=== PATIENT | female | born 1950 | race Caucasian/White ===

== ENCOUNTER 2019-01-31 10:57 | Day surgery (SDC) | payer MEDICARE ==
[~2019-01-31 10:57] MED LIST: Metoclopramide 10 MG/2 ML SDV IV PRN; Sodium Chloride 0.9% 1,000 ML IV SCH
[2019-01-31] MEDS ORDERED: Midazolam 1 MG/ML 2 ML SDV ONE (15:15)
[2019-01-31] MEDS ORDERED: Propofol 1,000 MG/100 ML SDV ONE (15:15)
--- NOTE | 2019-01-31 17:27 | OR ---
DATE OF OPERATION: 01/31/2019 PREOPERATIVE DIAGNOSIS: Screening colonoscopy. POSTOPERATIVE DIAGNOSIS: Screening colonoscopy. PROCEDURE: Colonoscopy. ANESTHESIA: MAC. ESTIMATED BLOOD LOSS: None. COMPLICATIONS: None. INDICATION FOR THE PROCEDURE: The patient is a 68-year-old female, here today for routine screening colonoscopy. It has been 10 years since her last scope. No change in bowel habits since that time. DESCRIPTION OF THE PROCEDURE: Informed consent was obtained from the patient. The patient was taken to the operating room, placed on table in left lateral decubitus position. Monitored anesthesia care was administered. Digital rectal exam performed and was normal. Colonoscope then was advanced through the anus directed toward the cecum. Cecum was reached and identified by appendiceal orifice and ileocecal valve. Colonoscope was slowly withdrawn. No masses. No polyps. No areas of ischemia or inflammation. No diverticula noted. Colonoscope in the rectum was also otherwise unremarkable. Colonoscope then withdrawn. FINDINGS: Normal colonoscopy. RECOMMENDATIONS: No further screening colonoscopies at this time. May have repeat colonoscopy if any change in bowel habits occurs. ADDY /[id number]
== END 2019-01-31 16:15 | disposition home or self-care (01) ==
LOC: LB.SDS 10:57
PROVIDERS: ATTEND Surgery
DX: Z12.11 Encounter for screening for malignant neoplasm of colon (principal)
CPT/HCPCS: G0121; J2250; J2704; J7030

== ENCOUNTER 2020-04-13 11:01 | Emergency (ER) | payer MEDICARE ==
[2020-04-13] MEDS ORDERED: Aspirin 81 MG Tab.Chew PO ONE (12:08)
[2020-04-13] MEDS ORDERED: Nitroglycerin 0.4 MG Tab.SL SL PRN (12:08)
[2020-04-13] MEDS ORDERED: Heparin Sodium 5,000 Units/ML Vial IVPUSH ONE (12:19)
[2020-04-13] MEDS ORDERED: Heparin Sodium/D5W 25,000 UNITS/500 ML BAG IV SCH ×2 (12:30→13:00)
--- NOTE | 2020-04-13 14:20 | EDM.PDOC ---
ED HPI GENERAL MEDICAL PROBLEM - General Chief Complaint: Chest Pain Stated Complaint: CHEST PAIN Time Seen by Provider: 04/13/20 11:50 Source of Information: Reports: Patient, RN History Limitations: Reports: No Limitations - History of Present Illness INITIAL COMMENTS - FREE TEXT/NARRATIVE: Sudden onset of substernal CP starting at approx 1000 this AM. + n/v/d, but denies any radiation of the pain or SOB. Pain was 9/10 at its worst [employer]GR[employer]. Onset: Today Onset Time: 10:00 Location: Reports: Chest Quality: Reports: Ache (constant) Severity: Moderate Improves with: Reports: None Worsens with: Reports: None Associated Symptoms: Reports: No Other Symptoms Middle Pain Score (Numeric/FACES): 1 - Related Data Allergies Allergy/AdvReac Type Severity Reaction Status Date / Time No Known Allergies Allergy Verified 01/31/19 11:35 Home Meds: Home Meds NK [No Known Home Meds] 01/31/19 [History] Past Medical History HEENT History: Reports: Hard of Hearing, Impaired Vision Other HEENT History: Left ear is hard of hearing - hole in the ear drum. Gastrointestinal History: Reports: Colon Polyp Genitourinary History: Reports: None - Infectious Disease History Infectious Disease History: Reports: Measles, Mumps - Past Surgical History GI Surgical History: Reports: None Social & Family History - Family History HEENT: Reports: None Cardiac: Reports: DC Respiratory: Reports: None GI: Reports: None : Reports: None OBGYN: Reports: None Musculoskeletal: Reports: None Neurological: Reports: CVA Endocrine/Metabolic: Reports: None - Tobacco Use Tobacco Use Status *Q: Former Tobacco User Years of Tobacco use: 40 Packs/Tins Daily: 1 Used Tobacco, but Quit: Yes Month/Year Tobacco Last Used: 2004 - Caffeine Use Caffeine Use: Reports: Soda - Recreational Drug Use Recreational Drug Use: No ED ROS GENERAL - Review of Systems Review Of Systems: See Below Constitutional: Reports: No Symptoms HEENT: Reports: No Symptoms Respiratory: Reports: No Symptoms Cardiovascular: Reports: Chest Pain Endocrine: Reports: No Symptoms GI/Abdominal: Reports: Diarrhea, Nausea : Reports: No Symptoms Musculoskeletal: Reports: No Symptoms Skin: Reports: No Symptoms Neurological: Reports: No Symptoms Psychiatric: Reports: No Symptoms ED EXAM, GENERAL - Physical Exam Exam: See Below Exam Limited By: No Limitations Ears: Normal External Exam Head: Atraumatic Neck: Normal Inspection Respiratory/Chest: No Respiratory Distress, Lungs Clear, Normal Breath Sounds Cardiovascular: Normal Peripheral Pulses, Regular Rate, Rhythm, No JVD, No Murmur Peripheral Pulses: 3+: Carotid (L), Carotid (R), Dorsalis Pedis (L), Dorsalis Pedis (R) GI/Abdominal: Normal Bowel Sounds, Soft (Female) Exam: Normal External Exam Back Exam: Normal Inspection Extremities: Normal Inspection, Normal Range of Motion, Non-Tender, No Pedal Edema, Normal Capillary Refill Neurological: Alert, Oriented, Normal Cognition Psychiatric: Normal Affect, Normal Mood Skin Exam: Warm, Dry, Intact Course - Vital Signs Last Recorded V/S: Last Vital Signs Temp 97.3 F 04/13/20 11:50 Pulse 47 L 04/13/20 12:46 Resp 13 04/13/20 12:46 BP 129/63 04/13/20 12:46 Pulse Ox 97 04/13/20 11:50 - Orders/Labs/Meds Orders: Active Orders 24 hr Category Date Time Status Chest 1V Frontal [CR] Stat Exams 04/13/20 12:08 Taken Labs: Laboratory Tests 04/13/20 04/13/20 04/13/20 Range/Units 12:08 12:08 12:19 WBC 7.6 D (4.0-11.0) K/uL RBC 4.43 (3.80-5.80) M/uL Hgb 13.3 (11.5-16.5) g/dL Hct 40.0 (37.0-47.0) % MCV 90 (76-96) fL MCH 30.0 (27.0-32.0) pg MCHC 33.3 (31.0-35.0) g/dL RDW 13.0 (11.0-16.0) % Plt Count 243 (150-500) K/uL MPV 10.5 H (6.0-10.0) fL Neut % (Auto) 70.3 H (45.0-70.0) % Lymph % (Auto) 24.7 (20.0-40.0) % Alexander % (Auto) 3.5 (3.0-10.0) % Eos % (Auto) 1.2 (1.0-5.0) % Baso % (Auto) 0.3 (0.0-0.5) % Neut # (Auto) 5.36 (2.00-7.50) K/uL Lymph # (Auto) 1.88 (1.50-4.00) K/uL Alexander # (Auto) 0.27 (0.20-0.80) K/uL Eos # (Auto) 0.09 (0.04-0.40) K/uL Baso # (Auto) 0.02 (0.02-0.10) K/uL APTT 18.5 L (24.4-33.2) SECONDS Sodium 142 (136-145) mmol/L Potassium 3.9 (3.5-5.1) mmol/L Chloride 106 (98-107) mmol/L Carbon Dioxide 26.8 (21.0-32.0) mmol/L Anion Gap 13.1 (5.0-15.0) mmol/L BUN 18 D (8-26) mg/dL Creatinine 1.03 H (0.55-1.02) mg/dL Est Cr Clr Drug Dosing TNP Estimated GFR (MDRD) 53 L (>60) MLS/MIN BUN/Creatinine Ratio 17.5 (6-25) Glucose 151 H D (74-100) mg/dL Calcium 9.4 (8.5-10.1) mg/dL Total Bilirubin 0.4 (0.0-1.0) mg/dL AST 16 (15-37) U/L ALT 20 (12-78) U/L Alkaline Phosphatase 81 (46-116) U/L Troponin I < 0.017 (0.000-0.060) ng/mL Total Protein 7.1 (6.4-8.2) g/dL Albumin 3.9 (3.4-5.0) g/dL Globulin 3.2 (2.2-4.2) g/dL Albumin/Globulin Ratio 1.2 (0.8-2.0) SARS CoV-2 RNA Rapid LÓPEZ 04/13/20 Range/Units 13:00 WBC (4.0-11.0) K/uL RBC (3.80-5.80) M/uL Hgb (11.5-16.5) g/dL Hct (37.0-47.0) % MCV (76-96) fL MCH (27.0-32.0) pg MCHC (31.0-35.0) g/dL RDW (11.0-16.0) % Plt Count (150-500) K/uL MPV (6.0-10.0) fL Neut % (Auto) (45.0-70.0) % Lymph % (Auto) (20.0-40.0) % Alexander % (Auto) (3.0-10.0) % Eos % (Auto) (1.0-5.0) % Baso % (Auto) (0.0-0.5) % Neut # (Auto) (2.00-7.50) K/uL Lymph # (Auto) (1.50-4.00) K/uL Alexander # (Auto) (0.20-0.80) K/uL Eos # (Auto) (0.04-0.40) K/uL Baso # (Auto) (0.02-0.10) K/uL APTT (24.4-33.2) SECONDS Sodium (136-145) mmol/L Potassium (3.5-5.1) mmol/L Chloride (98-107) mmol/L Carbon Dioxide (21.0-32.0) mmol/L Anion Gap (5.0-15.0) mmol/L BUN (8-26) mg/dL Creatinine (0.55-1.02) mg/dL Est Cr Clr Drug Dosing Estimated GFR (MDRD) (>60) MLS/MIN BUN/Creatinine Ratio (6-25) Glucose (74-100) mg/dL Calcium (8.5-10.1) mg/dL Total Bilirubin (0.0-1.0) mg/dL AST (15-37) U/L ALT (12-78) U/L Alkaline Phosphatase (46-116) U/L Troponin I (0.000-0.060) ng/mL Total Protein (6.4-8.2) g/dL Albumin (3.4-5.0) g/dL Globulin (2.2-4.2) g/dL Albumin/Globulin Ratio (0.8-2.0) SARS CoV-2 RNA Rapid LÓPEZ Negative Meds: Medications Discontinued Medications Generic Name Dose Route Start Last Admin Trade Name Freq PRN Reason Stop Dose Admin Aspirin 324 mg 04/13/20 12:08 04/13/20 12:04 Aspirin PO 04/13/20 12:09 324 mg ONETIME ONE Administration Heparin Sodium (Porcine) 4,000 units 04/13/20 12:19 04/13/20 12:44 Heparin Sodium IVPUSH 04/13/20 12:20 4,000 units .BOLUS ONE Administration Heparin Sodium/Dextrose 25,000 units in 500 mls @ 16.656 mls/hr 04/13/20 12:30 Heparin 25,000 Units In D5w 500 Ml IV TITRATE SUZY Protocol 12 UNITS/KG/HR Heparin Sodium/Dextrose 25,000 units in 500 mls @ 16.656 mls/hr 04/13/20 13:00 Heparin 25,000 Units In D5w 500 Ml IV TITRATE SUZY 12 UNITS/KG/HR Nitroglycerin 0.4 mg 04/13/20 12:08 04/13/20 12:04 Nitrostat SL 0.4 mg Q5M PRN Administration Chest Pain Departure - Departure Time of Disposition: 13:29 Disposition: DC/Tfer to Acute Hospital 02 Reason for Transfer *Q: Other Clinical Impression: Acute myocardial infarction Qualifiers: Myocardial infarction type: unspecified Involved coronary artery: unspecified coronary artery Qualified Code(s): I21.9 - Acute myocardial infarction, unspecified Referrals: PCP,None [Primary Care Provider] - Forms: ED Department Discharge Sepsis Event Note (ED) - Evaluation Sepsis Screening Result: No Definite Risk - Focused Exam Vital Signs: Vital Signs Temp Pulse Resp BP BP Pulse Ox 04/13/20 12:46 47 L 13 129/63 04/13/20 12:04 122/60 04/13/20 11:50 97.3 F 40 L 14 122/60 97 - My Orders Last 24 Hours: My Active Orders 04/13/20 12:08 Chest 1V Frontal [CR] Stat - Assessment/Plan Last 24 Hours: My Active Orders 04/13/20 12:08 Chest 1V Frontal [CR] Stat Plan: patient transfered to [facility] by helicopter to [place]. Consulted with Dr. Owens of the [facility], he is accepting patient, waiting in [facility]. Patient CP 07/05 after SL NTG. Heparin drip infusing for transport.
--- NOTE | 2020-04-14 07:59 | CR ---
Date of Service: 04/13/20 Clinical Data: cp AP CHEST: No priors. The heart size is normal. There is calcification in the aortic arch. The lungs are clear. No pneumothorax. No pleural effusions. No evidence of acute intrathoracic disease. [id number] MTDD
== END 2020-04-13 13:38 ==
LOC: LB.ED 11:01
DX: I21.9 Acute myocardial infarction, unspecified (principal); Z87.891 Personal history of nicotine dependence; Z20.828 Contact with and (suspected) exposure to other viral communicable diseases
CPT/HCPCS: 36415; 71045; 80053; 84484; 85025; 85730; 93005; 96374; 99285-25; A9270-GY; J1644; U0002

== ENCOUNTER 2020-12-08 07:15 | Emergency (ER) | payer MEDICARE ==
[2020-12-08] MEDS: Aspirin 81 MG Tab.Chew PO ONE ×2 (08:15→09:16)
[2020-12-08] MEDS ORDERED: Ondansetron 4 MG/2 ML SDV IVPUSH ONE (09:07)
--- NOTE | 2020-12-08 09:18 | CR ---
Date of Service: 12/08/20 Clinical Data: TX symptoms AP PORTABLE CHEST: Comparison is made to a prior exam dated 04/13/20. The heart size is within normal limits. There is calcification of the aortic arch. The lungs are mildly hyperexpanded, but clear. No pneumothorax. No pleural effusions. No evidence of acute intrathoracic disease. [id number] [facility]
[2020-12-08] MEDS ORDERED: Ondansetron 4 MG/2 ML SDV ONE (09:19)
--- NOTE | 2020-12-09 16:01 | PN ---
DATE OF VISIT: 12/08/2020 She came to the ER this morning by ambulance with complaints of dizziness, nausea, and vomiting x1. This happened after she was up for a while this morning. She states the dizziness was severe. It has resolved since then. She states she has a little bit of chest pressure, but no chest pain. She did take a nitroglycerin and it felt better. The patient is concerned that she is having another heart attack. She had one in last March and ended up with 4 stents. She is currently on Plavix, Lipitor, baby aspirin and nitroglycerin p.r.n. The patient tells me she has not been sick lately. She has not been running a fever. She has not been coughing or having any problems with shortness of breath. Again at this time, the patient denies any symptoms. OBJECTIVE: GENERAL APPEARANCE: The patient is awake and alert. No obvious distress. VITAL SIGNS: Reviewed. She is afebrile. Pulse is 60, blood pressure 155/70, and O2 sats 100%. HEENT: Oral, mucous membranes moist. Ears, the patient has a patch on the left TM. The TMs are both dull, otherwise unremarkable. LUNGS: Clear. CARDIAC: Heart sounds distinct. S1, S2 present. Regular rate. No murmurs noted. GI: Abdomen is soft, nontender. SKIN: Warm and dry. INITIAL LAB AND X-RAY: An EKG was obtained showing a normal sinus rhythm. The patient was given 4 baby aspirins to chew. Chest x-ray is unremarkable. Labs include a CBC, PT, INR, CMP, and troponin. The lab results are negative. DIAGNOSIS: Dizziness with a negative cardiac workup. TREATMENT PLAN: We monitored the patient in the ER for 6 hours and we repeated the EKG once after 30 minutes and a second time after 6 hours with a second troponin level. These were all negative. At this point, we had further discussion about other etiologies of her dizziness and vertigo, could have been a common option, although here in the ER, I cannot reproduce any dizziness. Hallpike maneuver is negative. The patient is able to stand and walk, a little bit clumsy at first, but she states this is due to arthritis pains and is chronic after she walked a little bit. Her gait did smoothen out some. We will discharge the patient home at this point. I gave her some meclizine 12.5 mg, she can use this as needed for dizziness and she states that she really does not have a primary care provider. I suggest that she establish care with someone as a primary and get in for a recheck over the next few days. Followup should be in the ER sooner if her condition should get worse. Heart score is 3. CRS/MODL /[id number] MTDShaquille
== END 2020-12-08 13:40 | disposition home or self-care (01) ==
LOC: LB.ED 07:15
DX: R42 Dizziness and giddiness (principal)
CPT/HCPCS: 36415; 71045; 80053; 84484; 85025; 85610; 93005; 96374; 99284; 99284-25; A0425; A0429; A9270-GY; J2405

== ENCOUNTER 2024-05-31 11:09 | Emergency (ER) | payer MEDICARE | END 2024-05-31 12:15 | disposition home or self-care (01) | LOC: LB.ED 11:09 | DX: R19.7 Diarrhea, unspecified (principal); I25.2 Old myocardial infarction; E78.00 Pure hypercholesterolemia, unspecified; K21.9 Gastro-esophageal reflux disease without esophagitis; M19.90 Unspecified osteoarthritis, unspecified site; E66.9 Obesity, unspecified; Z95.5 Presence of coronary angioplasty implant and graft; Z79.82 Long term (current) use of aspirin; Z79.899 Other long term (current) drug therapy; Z68.31 Body mass index [BMI] 31.0-31.9, adult | CPT/HCPCS: 99284 ==

== ENCOUNTER 2024-07-26 11:09 | Emergency (ER) | payer MEDICARE ==
[2024-07-26] MEDS: Sodium Chloride 0.9% 10 ML Syringe FLUSH PRN (11:25)
[2024-07-26] MEDS: Sodium Chloride 0.9% 500 ML IV ONE (11:47)
[2024-07-26] MEDS: Sodium Chloride 0.9% 1,000 ML IV ONE (11:47)
[2024-07-26 11:55] LABS: BASOPHILS ABSOLUTE AUTO 0.03 K/uL (0.02-0.10); BASOPHILS PERCENT AUTO 0.4 % (0.0-0.5); EOSINOPHILS ABSOLUTE AUTO 0.11 K/uL (0.04-0.40); EOSINOPHILS PERCENT AUTO 1.5 % (1.0-5.0); LYMPHOCYTES ABSOLUTE AUTO 1.92 K/uL (1.50-4.00); LYMPHOCYTES PERCENT AUTO 26.4 % (20.0-40.0); MEAN CORPUSCULAR HEMOGLOBIN 29.1 pg (27.0-32.0); MEAN CORPUSCULAR HGB CONC 33.3 g/dL (31.0-35.0); MEAN CORPUSCULAR VOLUME 87 fL (76-96); MEAN PLATELET VOLUME 10.4 fL (6.0-10.0); MONOCYTES PERCENT AUTO 5.5 % (3.0-10.0); NEUTROPHILS ABSOLUTE AUTO 4.81 K/uL (2.00-7.50); NEUTROPHILS PERCENT AUTO 66.2 % (45.0-70.0); PLATELET COUNT,PLT 221 K/uL (150-500); RED BLOOD CELL COUNT 4.47 M/uL (3.80-5.80); WHITE BLOOD CELL COUNT,WBC 7.3 K/uL (4.0-11.0)
[2024-07-26 12:10] LABS: ANION GAP 13.9 mmol/L (5.0-15.0); BUN/CREATININE RATIO 31.1 (6-25); CALCIUM 9.1 mg/dL (8.5-10.1); CARBON DIOXIDE,CO2 28.1 mmol/L (21.0-32.0); CREATININE 0.9 mg/dL (0.55-1.02); EST CRCL DRUG DOSING (CG) 60.37 mL/min
== END 2024-07-26 13:55 | disposition home or self-care (01) ==
LOC: LB.ED 11:09
DX: K52.9 Noninfective gastroenteritis and colitis, unspecified (principal); E78.00 Pure hypercholesterolemia, unspecified; I25.2 Old myocardial infarction; K21.9 Gastro-esophageal reflux disease without esophagitis; E66.9 Obesity, unspecified; Z95.5 Presence of coronary angioplasty implant and graft; Z79.82 Long term (current) use of aspirin; Z79.899 Other long term (current) drug therapy; Z68.22 Body mass index [BMI] 22.0-22.9, adult
CPT/HCPCS: 36415; 80048; 85025; 87507; 96360; 96361; 99284; J7040